=== PATIENT | male | born 1980 | race African-American/Black ===

== ENCOUNTER 2016-07-31 00:16 | Emergency (ER) | payer BC | END 2016-07-31 02:05 | disposition home or self-care (01) | LOC: ER 00:16 | DX: R06.02 Shortness of breath (principal); R07.89 Other chest pain; I10 Essential (primary) hypertension; E11.9 Type 2 diabetes mellitus without complications; J45.909 Unspecified asthma, uncomplicated; R42 Dizziness and giddiness; Z79.84 Long term (current) use of oral hypoglycemic drugs | CPT/HCPCS: 36415; 96374 ==

== ENCOUNTER 2016-08-27 03:36 | Emergency (ER) | payer BC | END 2016-08-27 04:47 | disposition home or self-care (01) | LOC: ER 03:36 | DX: J45.901 Unspecified asthma with (acute) exacerbation (principal); E11.9 Type 2 diabetes mellitus without complications; I10 Essential (primary) hypertension; Z79.84 Long term (current) use of oral hypoglycemic drugs; Z79.899 Other long term (current) drug therapy | CPT/HCPCS: 96372; J1100 ==

== ENCOUNTER 2016-10-11 14:40 | Emergency (ER) | payer BC | END 2016-10-11 14:57 | disposition home or self-care (01) | LOC: ER 14:40 | DX: J45.909 Unspecified asthma, uncomplicated (principal); I10 Essential (primary) hypertension; Z79.899 Other long term (current) drug therapy; Z79.51 Long term (current) use of inhaled steroids ==